=== PATIENT | female | born 2005 | race Caucasian/White ===

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

== ENCOUNTER → 2023-01-12 13:47 | Outpatient (BNVA) | payer BC, MEDICAID, SELFPAY | PROVIDERS: Visit Provider Nurse Practitioner Women's Health | DX: Z34.90 Encounter for supervision of normal pregnancy, unspecified, unspecified trimester (principal) | CPT/HCPCS: 82105; 84315; 87491; 87591 ==

== ENCOUNTER → 2023-02-02 15:11 | Outpatient (BNVA) | payer BC, MEDICAID, SELFPAY | PROVIDERS: Visit Provider Obstetrics & Gynecology | DX: Z34.90 Encounter for supervision of normal pregnancy, unspecified, unspecified trimester (principal) | CPT/HCPCS: 76805 ==

== ENCOUNTER → 2023-02-14 12:03 | Outpatient (BNVA) | payer BC, MEDICAID, SELFPAY | PROVIDERS: Visit Provider Nurse Practitioner | DX: R10.9 Unspecified abdominal pain (principal); O23.40 Unspecified infection of urinary tract in pregnancy, unspecified trimester; N39.0 Urinary tract infection, site not specified; Z3A.22 22 weeks gestation of pregnancy | CPT/HCPCS: 81000; 87086; 87491; 87591 ==

== ENCOUNTER 2025-03-17 15:15 | Emergency (ER) | payer BC, MEDICAID, SELFPAY ==
[2025-03-17 15:22] VITALS: BP 100/65; PULSE 102; RESP 14; TEMP 36.8; O2SAT 98; BMI 29.8
--- NOTE | 2025-03-17 15:42 | ED_ITS ---
HPI - Eye Problem General: Chief complaint: Eye Problems Stated complaint: rt eye swollen Time Seen by Provider: 03/17/25 15:42 History of Present Illness: 19-year-old female with no chronic medic al problems who presents to the emergency room with right upper eyelid pain. States she developed some swelling and mild pain to the eyelid. No pain with eye. No vision loss. She appears to have a stye Related Data Home Medications ?Medication ?Instructions ?Recorded ?Confirmed PNV 153-FA 400 mcg-om3 35 mg-dha tab PO DAILY 01/12/23 12/11/24 25 mg-epa 5 mg-fish oil chew tablet ( Gummies) Previous Rx's ?Medication ?Instructions ?Recorded citalopram 10 mg tablet (Celexa) 10 mg PO DAILY #30 ta bs 11/12/22 ondansetron HCl 4 mg tablet 4 mg PO Q8H PRN nausea and 12/01/22 vomiting #30 tabs cephalexin 500 mg capsule 500 mg PO TID 7 days #21 cap s 02/14/23 polymyxin B sulfate 10,000 1 drp ophthalmic (eye) Q3H 7 days 03/17/25 unit-trimethoprim 1 mg/mL eye drops #10 mL Allergies Allergy/AdvReac Type Severity Reaction Status Date / Time Latex, Natural Rubber Allergy Mild RASH Verified 03/17/25 15:24 Review of Systems Narrative: Constitutional symptoms: Negative except as documented in HPI. Skin symptoms: Negative except as documented in HPI. Eye symptoms: Negative except as documented in HPI. ENMT symptoms: Negative except as documented in HPI. Respiratory symptoms: Negative except as documented in HPI. Cardiovascular symptoms: Negative except as documented in HPI. Gastrointestinal symptoms: Negative except as documented in HPI. Genitourinary symptoms: Negative except as documented in HPI. Musculoskeletal symptoms: Negative except as documented in HPI. Neurologic symptoms: Negative except as documented in HPI. Psychiatric symptoms: Negative except as documented in HPI. Endocrine symptoms: Negative except as documented in HPI. [facility] ED PFSH: Medical History (Updated 03/17/25 @ 15:57 by Elena Brannon MD) Right ankle sprain Family History Denies family history of Colon cancer Ovarian cancer Diabetes Heart disease Breast cancer Hypertension Uterine cancer Thyroid disease Stroke Social History (Reviewed 12/11/24 @ 16:37 by RUPA Howell Smoking and tobacco/nicotine status: never used tobacco/nicotine Alcohol intake: never Substance/Drug Use: never Female Reproductive History: Para: 1 Spontaneous abortions: No Physical Exam Narrative: EXAM NARRATIVE: General: Alert, no acute distress. Skin: warm and dry Head: Normocephalic Neck: Trachea midline Eye: Extraocular movements are intact. Vision grossly intact. No scleral erythema or injection. No discharge. Upper eyelid does have a lateral bump that appears to be a stye. Ears, nose, mouth and throat: Oral mucosa moist Respiratory: Respirations are non-labored Musculoskeletal: Normal ROM Gastrointestinal: Abdomen does not appear distended Neurological: Alert and oriented, No focal neurological deficit observed. Psychiatric: Cooperative, appropriate mood & affect. Course Vital Signs: Vital signs: Vital Signs Temperature 98.2 F 03/17/25 15:22 Pulse Rate 102 H 03/17/25 15:22 Respiratory Rate 14 03/17/25 15:22 Blood Pressure 100/65 03/17/25 15:22 Pulse Oximetry 98 03/17/25 15:22 Oxygen Delivery Me thod Room Air 03/17/25 15:22 MDM - Eye Problem Medical Decision Making I advised warm compresses. Assessment and plan: Hordeolum/stye - Discharged home - Discussed plan with patient. Answered any questions. - Evaluation and treatment of this problem were appropriate in the emergency setting. No radiology studies performed this visit Discharge Plan Discharge Patient Disposition: Home Clinical Impression: Hordeolum of left upper eyelid Condition: Stable Prescriptions: New polymyxin B sulf-trimethoprim 10,000 unit- 1 mg/mL drops 1 drp ophthalmic (eye) Q3H 7 Days Qty: 10 0RF Rx Instructions: while awake; do not exceed 6 doses in 24 hours No Action citalopram [Celexa] 10 mg tablet 10 mg PO DAILY Qty: 30 1RF cephalexin 500 mg capsule 500 mg PO TID 7 Days Qty: 21 0RF ondansetron HCl 4 mg tablet 4 mg PO Q8H PRN (Reason: nausea and vomiting) Qty: 30 2RF Gummies 400 mcg-35 mg- 25 mg-5 mg tablet,chewable PO DAILY Discharge Orders: Discharge ED (Routine); Ordered 03/17/25 Ordered By: Elena Brannon Discharge Diet: Usual diet Discharge Activity: Increase activity as tolerated Patient Instructions: Thiago (ED), Opioid Safety, Pain Management, Patient Portal & Angelica Instructions, Thiago (Hordeolum) Activity Restrictions/Additional Instructions: Use frequent warm compresses. Thank you for choosing [facility] for your healthcare needs today. You have been screened and evaluated and felt safe for discharge. Health conditions do change or evolve sometimes and as such it is important that you follow up with your Primary Doctor to be re checked, 3-5 days is a general good time frame for follow up. You are always welcome to return to the ED for re assessment if your symptoms are worsening or you have new concerns. (Please note that included in your discharge packet is information concerning opioid safety and pain management. This information is given to all patients who are discharged from the ER regardless of their discharge diagnosis or the medicines they usually take or are prescribed.) Stand Alone Forms: Work/School Release Print Language: Lithuanian Coding Level of Care Code ED Churn Drill Operator for Jeni Joseph
== END 2025-03-17 16:00 | disposition home or self-care (01) ==
PROVIDERS: Emergency Provider Emergency Medicine
DX: H00.014 Hordeolum externum left upper eyelid (principal)
CPT/HCPCS: 99283